=== PATIENT | male | born 1990 | race Caucasian/White ===

== ENCOUNTER 2021-06-01 11:46 | Emergency (ER) | payer OTHER, SELFPAY ==
--- NOTE | ~2021-06-01 | XR_ITS ---
EXAMINATION: XR ANKLE, RIGHT CLINICAL INFORMATION: Fall on ice. Unable to bear weight. COMPARISON: None TECHNIQUE: AP, lateral, and mortise views of the right ankle. FINDINGS: There is no fracture or dislocation. The ankle mortise is congruent. No ankle joint effusion. The soft tissues appear unremarkable. XR/XR ankle RT min 3V IMPRESSION: No fracture or malalignment.
[2021-06-01 12:09] VITALS: BP 141/86; PULSE 95; RESP 16; TEMP 36; O2SAT 97; BMI 29.5
--- NOTE | 2021-06-01 13:09 | ED_ITS ---
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 Patient felt the ankle wondering when he writes the bottom of the stairs. Positive swelling and pain since. Pain 5/10 increased with range of motion weight-bearing. Onset of symptoms today. No other complaints at this time. Related Data Allergies Allergy/AdvReac Type Severity Reaction Status Date / Time No Known Allergies Allergy Verified 06/01/21 12:12 Review of Systems Constitutional: Constitutional: Denies chills, Denies fever(s) and Denies headache(s) ENT: Denies headache(s) Cardiovascular: Cardiovascular: Denies chest pain and Denies dyspnea Respiratory: Respiratory: Denies cough and Denies dyspnea Gastrointestinal: Gastrointestinal: Denies nausea and Denies vomiting Musculoskeletal: Musculoskeletal: Reports joint swelling Comments: Right ankle pain Neurologic: Denies headache(s) [facility] Past Medical History Surgical History (Updated 06/01/21 @ 12:11 by Sejal Walker) History of ankle surgery Social History Social History Advance Directives: No Advance Directives Information Provided: No Physical Exam Vital Signs: Vital Signs: Last Vital Signs Temp 96.8 F 06/01/21 12:09 Pulse 95 06/01/21 12:09 Resp 16 06/01/21 12:09 BP 141/86 H 06/01/21 12:09 Pulse Ox 97 06/01/21 12:09 BMI result Body Mass Index 29.5 vital signs have been reviewed as normal and appeared to be correct. Blood pressure normal. Heart rate normal. Respiration rate normal. Temperature normal. Oxygen saturation normal. Appearance: Alert. Oriented X3. No acute distress. Head: Normal external exam. Normocephalic. Atraumatic. Eyes: PERRLA. EOMI. Conjunctiva and sclera normal. Eyelids normal. ENT: Pharynx normal. Uvula midline. Moist mucous membranes. Neck: Soft full range of motion, no JVD CVS: Heart regular rate and rhythm no murmurs and rubs Respiratory: Breath sounds are clear to auscultation bilaterally. No accessory muscle use noted. Back: Full range of motion noted. Skin: Skin is warm dry and no ecchymosis or rashes noted Extremities: Right ankle positive edema positive lateral malleolus tenderness positive pulses positive sensation Neuro: Oriented X 3. No motor deficit. No sensory deficit. Reflexes normal. Course Course Course Narrative: Right ankle fracture Right ankle sprain Contusion Symptoms consistent with right ankle sprain plan to place patient in [employer] crutches follow-up is needed rest ice elevation MDM - Extremity Injury (Lower) Imaging Data ankle: Radiologist's impression: [address] [address] XRay Report Signed Patient: Anthony Conde MR#: [id number] : 1990 Acct:[id number] Age/Sex: 31 / M ADM Date: 06/01/21 Loc: .ED Attending Dr: Ordering Physician: Generic ED Physician Date of Service: 06/01/21 Procedure(s): XR ankle RT min 3V Accession Number(s): [id number] cc: Generic ED Physician~ EXAMINATION: XR ANKLE, RIGHT CLINICAL INFORMATION: Fall on ice. Unable to bear weight.? COMPARISON: None? TECHNIQUE: AP, lateral, and mortise views of the right ankle. FINDINGS: There is no fracture or dislocation. The ankle mortise is congruent. No ankle joint effusion. The soft tissues appear unremarkable.? XR/XR ankle RT min 3V IMPRESSION: No fracture or malalignment. Dictated By: Serafin Allen MD Signed By: <Electronically signed by Serafin Allen MD in OV> 06/01/21 1237 DD/ 1228 TD/TT:? 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
== END 2021-06-01 13:41 | disposition home or self-care (01) ==
LOC: HO.ED 13:19
PROVIDERS: Emergency Provider Emergency Medicine
DX: S93.401A Sprain of unspecified ligament of right ankle, initial encounter (principal); S96.911A Strain of unspecified muscle and tendon at ankle and foot level, right foot, initial encounter; X50.1XXA Overexertion from prolonged static or awkward postures, initial encounter; Y93.89 Activity, other specified; Y92.9 Unspecified place or not applicable; Y99.0 Civilian activity done for income or pay
CPT/HCPCS: 73610; 99283